=== PATIENT | male | born 1985 | race Caucasian/White ===

== ENCOUNTER 2020-10-06 16:05 | Outpatient (CLI) | payer OTHER ==
[2020-10-06 16:48] VITALS: BP 105/73
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
== END 2020-10-06 16:06 | disposition home or self-care (01) ==
LOC: SC 16:05
PROVIDERS: ATTEND Nurse Practitioner Family
DX: R06.83 Snoring (principal); R06.81 Apnea, not elsewhere classified; R41.89 Other symptoms and signs involving cognitive functions and awareness; G47.10 Hypersomnia, unspecified; E66.3 Overweight; Z68.26 Body mass index [BMI] 26.0-26.9, adult
CPT/HCPCS: 99203; 99212

== ENCOUNTER 2020-10-23 09:46 | Outpatient (CLI) | payer OTHER | END 2020-10-23 09:47 | disposition home or self-care (01) | LOC: SC 09:46 | PROVIDERS: ATTEND Nurse Practitioner Family | DX: G47.33 Obstructive sleep apnea (adult) (pediatric) (principal); R09.02 Hypoxemia; E66.3 Overweight; Z68.26 Body mass index [BMI] 26.0-26.9, adult | CPT/HCPCS: 95806 ==

== ENCOUNTER 2020-11-03 10:42 | Outpatient (CLI) | payer OTHER ==
--- NOTE | 2020-11-03 10:42 | SLEEP CARE CONSULTATION ---
Information from patient questionnaire entered by Jenna Leo. I have reviewed and concur with the information entered by Jenna Leo. This document represents the service I personally performed and the decisions made by , Caroline Padilla ARNP. History of Present Illness Service Date and Time: 11/03/2020 1020 Initial [place] Sleepiness Scale score: 16 (in 2020) Current [place] Sleepiness Scale score: 17 Additional HPI information: CHIQUITA RAZA returns via Telehealth visit for follow up and results of the recently performed home sleep study. I explained the pathophysiology behind obstructive sleep apnea. We then spent quite a bit of time discussing different treatment options. For mild obstructive sleep apnea, surgery and oral appliance are alternatives to nasal CPAP therapy but in moderate or severe cases, nasal CPAP is the most effective and reliable treatment. Because apnea is primarily in supine position, then positional management therapy could be effective. Methods discussed such as positioning with pillows, using a T-shirt with tennis balls in the back, and shown commercial products that have a pillow format on back to prevent supine sleep. I reviewed the impact of weight changes on sleep apnea and strongly recommended losing weight. After some discussion, the patient opted to go with the nasal CPAP therapy. Nasal autoCPAP set at 4-15 cmH20 will be ordered with rationale explained. A manual titration study will be ordered if unable to find optimal pressure with office adjustments. I explained how CPAP machine works and what to expect when using the machine. Using CPAP every night in order to get used to it was emphasized. Patient advised to put CPAP mask on before getting into bed so as not to fall asleep without CPAP. To assist acclimation to CPAP use, it could also be used for a short time during day while reading or watching TV. The patient was instructed to call the CPAP supplier to discuss any mechanical problem that may occur. If the mask given is uncomfortable or is difficult to keep on through the night even with adjustment, contact the CPAP supplier as many will replace with another mask style if notified before 30 days. If snoring or perceives is not getting enough air or too much air from the machine, notify this office. Patient counseled not drink alcohol less than 4 hours before bedtime as it can increase snoring and apnea. Patient was cautioned about risks of drowsy driving until sleepiness symptoms resolve. Sleep Study - Results Type of Sleep Study: Home sleep study Prior sleep studies: No Polysomnography/Home Sleep Study results: Physician Impression: The quality of the study is good. The length of the study is adequate (> 240 minutes). Please also see the tabulated and graphic data. 1. Obstructive Sleep Apnea-Hypopnea (ICD-10 G47.33), mild, with an AHI of 5.8/hr and elizabeth SaO2 of 88%. During the study, the patient had 40 apneas (38 obstructive, 0 central, 2 mixed) and 10 hypopneas. The longest episode lasted 47.0 seconds. The respiratory events occurred almost exclusively during supine sleep (supine AHI was 8.5 and non-supine, 4.55). 2. Hypoxemia (ICD-10 R09.02), minimal, with the lowest oxygen saturation of 88 % and 0.1 minutes with SaO2 under 90%. Baseline oxygen saturation was normal (Average oxygen saturation was 96%). Allergies and Home Medications Home medication list reviewed: Yes (no changes) Review of Systems Review of systems same as previous: Yes (no changes) Physical Exam Vital signs obtained and entered by: Telehealth visit to reduce exposure during covid pandemic Height: 6 ft Impression and Plan 1. Obstructive Sleep Apnea-Hypopnea Syndrome, mild, with lowest oxygen saturation of 88. Obviously this is the cause of the patients symptoms of unrefreshed sleep, and excessive daytime sleepiness. Positive pressure therapy could benefit his overall health and reduce risks of developing cardiovascular or cerebrovascular adverse events. As mentioned above, the patient will be started on nasal autoCPAP therapy with pressure set at 4-15 cmH2O. Compliance guidelines also reviewed. A copy of compliance guidelines will be given for reference at check out. Because the apnea is more severe supine, I instructed to avoid sleeping supine using pillow positioning until able to start CPAP use. * Nasal auto CPAP therapy, pressure at 4-15 cm H2O. * Attempt to lose weight. * Avoid alcohol consumption near bedtime. * Avoid supine sleep until using CPAP. * The patient is again cautioned about driving until sleepiness completely resolves. * Return one month after CPAP obtained. I will assess response to therapy and compliance at that time. Visit Type: Telehealth Video Video Type: Other (VSEE) Patient Location: Car Location of Provider: Office Patient agrees and consents to this telehealth visit type: Yes Patient agrees to have their insurance billed: Yes Time Spent with Patient (minutes): 20 Provider Statement: I spent 100% of the Telehealth Video Call with the patient with greater than 50% spent counseling the patient and coordination of care.
== END 2020-11-03 10:43 | disposition home or self-care (01) ==
LOC: SC 10:42
PROVIDERS: ATTEND Nurse Practitioner Family
DX: G47.33 Obstructive sleep apnea (adult) (pediatric) (principal)

== ENCOUNTER 2020-12-28 08:54 | Outpatient (CLI) | payer OTHER ==
--- NOTE | 2020-12-28 09:40 | SLEEP CARE CONSULTATION ---
Information from patient questionnaire entered by Jenna Leo. I have reviewed and concur with the information entered by Jenna Leo. This document represents the service I personally performed and the decisions made by me, Phuong Duncan MD, [facility]. History of Present Illness Service Date and Time: 12/28/2020 0854 Previous diagnosis: Mild, Obstructive Sleep Apnea-Hypopnea Syndrome AHI: 5.8 (in 2020) Reason for follow up: first compliance Equipment type: CPAP Equipment obtained from: [facility] Mask style: Nasal Prior sleep studies: Yes Year and Where: 2020 - [facility] Type of Sleep Study: Home sleep study HPI additional information: HPI: Mr. Roland was diagnosed to have mild obstructive sleep apnea-hypopnea syndrome and returns today for follow up of CPAP therapy. The patient purchased the device from [facility] and was fitted with a ResMed N30i mask. He uses the device nightly and all through the night. The compliance report shows that he uses the device 30 nights out of the past 30 nights, averaging 7 hours a night. He complains of no particular problem with the device such as soreness on the face, dry nose, epistaxis, nasal congestion or headache. He thinks that the pressure of 4 - 15 cmH2O is too low. On the CPAP therapy he notices improvement in his sleep quality, and that he wakes up feeling fresher in the morning and more awake/alert during the day. His notices no snore at all. [place] Sleepiness Scale score is 15. The average residual AHI is 8.6; and average time in large leak per day is 12 seconds a night. The 90th percentile pressure is 8.9 cmH2O. CPAP Compliance Data - Data Reviewed with Patient Average duration of nightly device use: 7 hr 6 min Compliance rate %: 93.3 Current pressure setting (cmH2O): 4-15 Humidity settin Heated hose settin Average residual AHI: 8.7 Average large leak: 12 sec Subjective Patient concerns: reports: other (occasional snore while using device) Current pressure setting perceived as: too low Initial [place] Sleepiness Scale score: 16 (in 2019) Current [place] Sleepiness Scale score: 15 Allergies and Home Medications Drug allergies reviewed: Yes Home medication list reviewed: Yes Review of Systems Review of systems same as previous: Yes Physical Exam Height: 6 ft Weight: 196 lb Body Mass Index: 26.6 BMI Classification: Overweight Impression and Plan IMPRESSION: 1. Obstructive Sleep Apnea-Hypopnea Syndrome, mild, with the patient continuing to do well on nasal CPAP therapy. He has excellent compliance and significant clinical benefits. The current pressure appears effective and comfortable. Overall, he is very satisfied with treatment and plans to continue with it long-term. Because the residual AHI is still high, I will raise the pressure range. PLAN: 1. AutoCPAP raised to 8 - 15 cm H2O. 2. Return in one year for follow up or earlier if there is any problem with the treatment. Visit Type: In Office Time Spent with Patient (minutes): 15 Provider Statement: I spent 100% of the Face to Face Visit with the patient with greater than 50% spent counseling the patient and coordination of care.
== END 2020-12-28 08:55 | disposition home or self-care (01) ==
LOC: SC 08:54
PROVIDERS: ATTEND Internal Medicine Pulmonary Disease
DX: G47.33 Obstructive sleep apnea (adult) (pediatric) (principal); E66.3 Overweight; Z68.26 Body mass index [BMI] 26.0-26.9, adult
CPT/HCPCS: 99212

== ENCOUNTER 2022-02-24 15:47 | Outpatient (CLI) | payer OTHER ==
--- NOTE | 2022-02-24 16:20 | SLEEP CARE CONSULTATION ---
Information from patient questionnaire entered by Moose Garcia MA. I have reviewed and concur with the information entered by Moose Garcia MA. This document represents the service I personally performed and the decisions made by , Caroline Padilla ARNP. History of Present Illness Service Date and Time: 02/24/2022 1547 Previous diagnosis: Mild, Obstructive Sleep Apnea-Hypopnea Syndrome AHI: 5.8 (in 2020) Reason for follow up: annual (LAST SEEN 12/2020, BERE, ) Equipment type: CPAP Equipment obtained from: [facility] (getting supplies as needed) Mask style: Nasal Backup mask available: No (will need to keep old mask when replaced) Last cushion change: 2 weeks ago Prior sleep studies: Yes Year and Where: 2020 - [facility] Type of Sleep Study: Home sleep study HPI additional information: CHIQUITA RAZA was diagnosed to have mild, AHI 5.8, obstructive sleep apnea- hypopnea syndrome and returned today for CPAP therapy annual follow-up. Sleep Study - Results Type of Sleep Study: Home sleep study Prior sleep studies: Yes Year and Where: 2020 - [facility] CPAP Compliance Data - Data Reviewed with Patient Average duration of nightly device use: 5 HOURS 21 MINUTES Compliance rate %: 53.3 (30 day - 50% with 6.6 AHI) Current pressure setting (cmH2O): 4-15 (median 6.5, avg 8.4, max 10.1) Humidity settin Heated hose settin Average residual AHI: 7.9 Central apnea: 3.4 Obstructive apnea: 0.8 Hypopnea: 3.7 Average large leak: 0 Subjective Missed days of use due to: reports: mask issues (does not feel comfortable), other (allergies) Patient concerns: reports: other (SNORE WHILE USING IT. ). denies: aerophagia, mask discomfort, air blowing in eyes, mask leak noise, condensation in mask/hose, nasal congestion, dry mouth, nose, throat, epistaxis Observed to snore while using device: Yes (sometimes) Current pressure setting perceived as: too low (MAYBE TO LOW,) On therapy, patient: reports: sleeping better, awakening more refreshed, being more awake and alert during the day, more rested overall. denies: drowsiness while driving Initial [place] Sleepiness Scale score: 16 (in 2019) Current [place] Sleepiness Scale score: 7 (02/2022) Allergies and Home Medications Known drug allergies: No Drug allergies reviewed: Yes Home medication list reviewed: Yes (Adult Multivitamin) Review of Systems Review of systems same as previous: Yes (HX PANIC ATTACKS, ) Physical Exam Vital signs obtained and entered by: Antony GARCIA CMA AAMA Blood Pressure: 132/93 (RIGHT, PULSE 84, RESP 18) Heart Rate: 82 O2 Saturation: 97 (PAER MASK) Height: 6 ft Weight: 200 lb Body Mass Index: 27.1 BMI Classification: Overweight Impression and Plan 1. Obstructive Sleep Apnea-Hypopnea Syndrome, mild, with fair treatment compliance and fair apnea control with elevated residual AHI. On CPAP therapy, t he patient has better sleep quality and is more rested overall. Patient has an elevated AHI with central index at 3.4, obstructive index at 0.8 and hypopnea index at 3.7. The patients pressure will be changed to autoCPAP 9-15 cmH20 for elevation of residual AHI. Patient advised to contact me if pressure change is uncomfortable so that it can be adjusted. Goals for apnea control discussed. Patient has a Dreamstation that was updated in 2020. Patient has already registered their device for the recall. Patient denies any black particles seen in machine or hoses, any unusual odors coming from device. Patient has not experienced any physical symptoms such as upper airway irritation, headache, skin or eye irritation, asthma, nausea/vomiting, difficulty breathing or chest pain. If patient is not able to sleep due to waking up choking, gasping for air or other respiratory distress that they may decide to continue using it until it is either replaced or repaired. Patient states he sometimes has allergies which limit his ability to use his CPAP. I suggested trying a full face mask on those nights. Right now he is using a ResMed nasal cushion. I advised trying a ResMed AirFit F30i and he voiced agreement. Fitting for full face added to prescription for [place]. Patient voiced understanding and agreement with plan. Patient's apnea severity and rationale for treatment to reduce apnea, improve sleep quality and reduce cardiovascular and cerebrovascular events was reviewed. Patient is overweight with a BMI of 27.1. I encouraged patient to try to lose weight. * Change auto CPAP pressure to 9-15 cmH2O * Mask refitting for full face mask * Notify me if snoring with mask or feeling that the pressure is too much or too little * Attempt to lose weight * Call this office if any problems using CPAP * Return for follow up in 1-2 months, or sooner if concerns arise Counseling Topics: Spare mask, Weight loss health impact Visit Type: In Office Time Spent with Patient (minutes): 22 Provider Statement: I spent 100% of the Face to Face Visit with the patient with greater than 50% spent counseling the patient and coordination of care.
[2022-02-24 16:21] VITALS: BP 132/93
== END 2022-02-24 15:48 | disposition home or self-care (01) ==
LOC: SC 15:47
PROVIDERS: ATTEND Nurse Practitioner Family
DX: G47.33 Obstructive sleep apnea (adult) (pediatric) (principal); E66.3 Overweight; Z68.27 Body mass index [BMI] 27.0-27.9, adult
CPT/HCPCS: 99212; 99213

== ENCOUNTER 2022-04-14 15:53 | Outpatient (CLI) | payer OTHER ==
[2022-04-14 16:27] VITALS: BP 138/92
--- NOTE | 2022-04-14 16:27 | SLEEP CARE CONSULTATION ---
Information from patient questionnaire entered by Moose Schneider MA. I have reviewed and concur with the information entered by Moose Schneider MA. This document represents the service I personally performed and the decisions made by , Caroline Padilla ARNP. History of Present Illness Service Date and Time: 04/14/2022 1553 Previous diagnosis: Mild, Obstructive Sleep Apnea-Hypopnea Syndrome AHI: 5.8 (in 2020) Reason for follow up: other ( 7 WEEK F/U, BERE, ROA 11/16/2020, ) Equipment type: CPAP Equipment obtained from: [email or web address] (getting supplies as needed) Mask style: Nasal Backup mask available: Yes (old mask) Last cushion change: 1 month Prior sleep studies: Yes Year and Where: 2020 - [facility] Type of Sleep Study: Home sleep study HPI additional information: CHIQUITA RAZA was diagnosed to have mild, AHI 5.8, obstructive sleep apnea- hypopnea syndrome and returned today for CPAP therapy 7 week follow-up. Sleep Study - Results Type of Sleep Study: Home sleep study Prior sleep studies: Yes Year and Where: 2020 - [facility] CPAP Compliance Data - Data Reviewed with Patient Average duration of nightly device use: 6 HOURS 2 MINUTES Compliance rate %: 68.9 (01/14/22-04/13/22; 90 days; 82/90) Current pressure setting (cmH2O): 9-15 (avg 9.5) Humidity settin Heated hose settin Average residual AHI: 6.7 Central apnea: 3.9 Obstructive apnea: 0.7 Hypopnea: 2.1 Average large leak: 0 Subjective Missed days of use due to: reports: other (fall asleep without it) Patient concerns: denies: aerophagia, mask discomfort, air blowing in eyes, mask leak noise, condensation in mask/hose, nasal congestion, dry mouth, nose, throat, epistaxis, other Current pressure setting perceived as: comfortable On therapy, patient: reports: sleeping better, awakening more refreshed, being more awake and alert during the day, more rested overall. denies: drowsiness while driving Initial [place] Sleepiness Scale score: 16 (in 2019) Current [place] Sleepiness Scale score: 5 Allergies and Home Medications Home medication list reviewed: Yes (no changes) Review of Systems Review of systems same as previous: Yes (no changes) Physical Exam Vital signs obtained and entered by: TATI FOWLER Blood Pressure: 138/92 Cuff size: wrist Heart Rate: 72 O2 Saturation: 98 (CLOTH MASK) Height: 6 ft Weight: 200 lb (CLOTHES) Body Mass Index: 27.1 BMI Classification: Overweight Impression and Plan 1. Obstructive Sleep Apnea-Hypopnea Syndrome, mild, with good treatment compliance and fair apnea control with mildly elevated residual AHI. On CPAP therapy, the patient has better sleep quality and is more rested overall. Patient is very happy since we changed his pressure setting. He states is very comfortable and he is feeling very good results from using his CPAP. He especially feels well when he gets at least 6 hours of sleep at night. He does h ave a mildly elevated residual AHI at 6.5, but I will leave pressure as it is since he is getting significant improvement of his sleep apnea and better rest overall. Patient denies problems with oral dryness, nasal congestion, epistaxis, skin irritation or aerophagia. Patient's apnea severity and rationale for treatment to reduce apnea, improve sleep quality and reduce cardiovascular and cerebrovascular events was reviewed. 2. Overweight, unspecified. Currently patients BMI is 27.1. Patient is advised to lose weight. Weight loss can be done with reducing portion size, reducing refined foods and balancing content with vegetables, fruit and whole grain foods. In addition, patient encouraged to get regular exercise. * Continue auto CPAP pressure at 9-15 cmH2O * Notify me if snoring with mask or feeling that the pressure is too much or too little * Attempt to lose weight * Call this office if any problems using CPAP * Return for follow up in 1 year, or sooner if concerns arise Counseling Topics: Spare mask, Weight loss health impact Visit Type: In Office Time Spent with Patient (minutes): 20 Provider Statement: I spent 100% of the Face to Face Visit with the patient with greater than 50% spent counseling the patient and coordination of care.
== END 2022-04-14 15:54 | disposition home or self-care (01) ==
LOC: SC 15:53
PROVIDERS: ATTEND Nurse Practitioner Family
DX: G47.33 Obstructive sleep apnea (adult) (pediatric) (principal); E66.3 Overweight; Z68.27 Body mass index [BMI] 27.0-27.9, adult
CPT/HCPCS: 99212; 99213